=== PATIENT | male | born 1945 | race Caucasian/White ===

== ENCOUNTER 2020-03-22 16:02 | Outpatient (CLI) | payer MEDICARE, SELFPAY | END 2020-03-22 16:22 | PROVIDERS: PCP Nurse Practitioner Family; Visit Provider Student in an Organized Health Care Education/Training Program | DX: R06.02 Shortness of breath (principal); R06.83 Snoring; R51.9 Headache, unspecified | CPT/HCPCS: 94762 ==

== ENCOUNTER 2020-04-02 00:44 | Outpatient (CLI) | payer MEDICARE, SELFPAY ==
[2020-04-02 12:57] LABS: ALT 26 U/L (16-63); AST 11 U/L (15-37); Albumin 3.8 g/dL (3.4-5.0); Alkaline Phosphatase 106 U/L (46-116); Anion Gap 8.6 mmol/L (3-11); BUN 19 mg/dL (7-18); Bilirubin, Total 0.6 mg/dL (0.2-1.0); CO2 27.4 mmol/L (21.0-32.0); CREATININE 1.1 mg/dL (0.70-1.30); Calcium 9.2 mg/dL (8.5-10.1); Calculated LDL 126 mg/dL (<100); Chloride 103 mmol/L (98-107); Cholesterol 191 mg/dL (<200); Glucose 100 mg/dL (74-106); HDL Cholesterol 42 mg/dL (40-60); Potassium 4.5 mmol/L (3.5-5.1); Sodium 139 mmol/L (136-145); Total Protein 7.5 g/dL (6.4-8.2); Triglyceride 118 mg/dL (<150)
[2020-04-02 13:31] LABS: Hemoglobin A1C 5.8 % (<5.7)
[2020-04-02 18:07] LABS: PSA, Screening 0.6 ng/mL (0.0-6.5)
== END 2020-04-02 00:45 | disposition home or self-care (01) ==
LOC: LOS 00:44
PROVIDERS: PCP Nurse Practitioner Family; Visit Provider Nurse Practitioner Family
DX: E78.5 Hyperlipidemia, unspecified (principal); I10 Essential (primary) hypertension; R73.9 Hyperglycemia, unspecified; N40.0 Benign prostatic hyperplasia without lower urinary tract symptoms; Z12.5 Encounter for screening for malignant neoplasm of prostate
CPT/HCPCS: 36415; 80053; 80061; 84153; 83036

== ENCOUNTER 2020-04-19 02:47 | Outpatient (CLI) | payer MEDICARE, SELFPAY ==
--- NOTE | 2020-04-19 13:19 | DI.US_ITS ---
APPROVED REPORT EXAM: Comprehensive 2D, Doppler, and color-flow Echocardiogram Patient Location: Out-Patient Sales Process Manager: Alpa Baxter RDCS (AE) Indications: SOB, Evaluate EF Other Information Study Quality: Adequate Conclusion Left Ventricle : The left ventricle is normal size. The left ventricular systolic function is normal. The left ventricular ejection fraction is within the normal range. There is normal left ventricular wall thickness. There is normal LV segmental wall motion. The left ventricular diastolic function is normal. LVEF is 60%. Right Ventricle : The right ventricle is normal size. The right ventricular systolic function is norm al. The RVSP is 23.7 mmHg. Atria : The left atrium size is normal. The right atrium size is normal. Valves: There are no hemodynamically significant valvular lesions. Great Vessels : The aortic root is normal in size. The ascending aorta is normal in size. Aortic arch is normal in caliber. IVC is normal in size and collapses >50% with inspiration. Please see remainder of study for further details. Wall motion Left Ventricle The left ventricle is normal size. The left ventricular systolic function is normal. The left ventric ular ejection fraction is within the normal range. There is normal left ventricular wall thickness. T here is normal LV segmental wall motion. The left ventricular diastolic function is normal. There is no ventricular septal defect visualized. LVEF is 60%. Right Ventricle The right ventricle is normal size. The right ventricular systolic function is normal. The RVSP is 23 .7 mmHg. Atria The left atrium size is normal. The right atrium size is normal. The interatrial septum is intact wit h no evidence for an atrial septal defect. Aortic Valve The aortic valve is normal in structure. Aortic valve is trileaflet. There is no aortic valvular sten osis. No aortic regurgitation is present. Mitral Valve Mild mitral annular calcification. No evidence of mitral valve stenosis. Trace mitral regurgitation. Tricuspid Valve The tricuspid valve is normal in structure. There is no tricuspid valve stenosis. Trace tricuspid reg urgitation. Pulmonic Valve The pulmonary valve is normal in structure. There is no pulmonic valvular stenosis. Trace pulmonic re gurgitation. Great Vessels The aortic root is normal in size. The ascending aorta is normal in size. Aortic arch is normal in ca liber. IVC is normal in size and collapses >50% with inspiration. Pericardium There is no pericardial effusion. 2D Dimensions IVSD d PLAX 0.91 cm M: 0.6-1.2 LV Vol A2C d MOD 60.4 mL LVPW d PLAX 0.91 cm M: 0.6 - 1.2 LV Vol A4C d MOD 92.0 mL LVID d PLAX 4.21 cm M: 4.2 - 5.8 LA vol/ BSA A2C s A-L 15.3 mL/m2 LVDs 3.00 cm M: 2.5 - 4.0 LA vol/ BSA A4C s A-L 22.0 mL/m2 Ao Root d 3.55 cm M: 3.1 - 3.7 LA Vol/ BSA Biplane s A-L 19.6 mL/m2 RA Area A4C 11.88 cm2 LA Area A4C s MOD 15.42 cm2 RA Vol/ BSA A4C s A-L 14.1 mL/m2 LA Area A2C s MOD 12.08 cm2 Ao Asc Diam d 3.34 cm M: 2.6 - 3.4 LV EF A4C MOD 57.8 % LV EF Teichholz 54.6 % LV EF A2C MOD 60.4 % LVEF (Rolle's) 59.24 % M: 52 - 72 LV EF Biplane MOD 59.2 % LV Volume 58.88 mL M: 62 - 150 SV 45.62 mL LV Volume Index 31.15 mL/m2 M: 34 - 74 SV Index 24.14 mL/m2 LV Vol Biplane MOD 77.0 mL FS 28.00 % M-Mode TAPSE 2.85 cm (M/F) >1.7 LV Diastology MV E' medial 0.100 (>0.07 m/s) E/A Ratio 0.6 LV E/e MED 4.40 (<14) MV E Vmax 0.44 (0.4-1.3 m/s) MV E' lateral 0.099 (>0.1 m/s) MV A Vmax 0.80 (0.4-1.3 m/s) LV E/e LAT 4.45 (<14) MV E/A Ratio 0.55 MV E/E' medial 4.44 MV E/E' lateral 4.49 Aortic Valve LVOT Area 2.97 cm2 AoV Area Vmax 2.37 cm2 LVOT Vmax 0.80 m/s AoV Area/ BSA (Vmax) 1.26 cm2/m2 LVOT Mean Roger. 0.55 m/s KARYNA Mean Roger. 2.45 cm2 LVOT Peak Grad 2.6 mmHg KARYNA Mean Roger. Index 1.30 cm2/m2 LVOT Mean Grad 1.4 mmHg LVOT VTI 0.182 m LVOT Diam s 1.90 cm AoV Vmax 1.00 m/s Velocity Ratio 0.80 AoV Mean Roger. 0.67 m/s AoV Peak Grad 4.0 mmHg LVOT SV 53.85 mL AoV Mean Grad 2.0 mmHg AoV VTI 0.175 m AoV Area VTI 3.07 cm2 AoV Area/ BSA (VTI) 1.63 cm/m2 Mitral Valve MV DT 247 (160-240 msec) MV PHT 72 msec MV Area PHT 3.07 cm2 Pulmonary Valve PV Vmax 1.03 (0.5-1.5 m/s) RVOT Peak Gr. 1.56 mmHg PV Peak Grad 4.2 mmHg RVOT Mean Gr. 0.75 mmHg PV Mean Grad 2.1 mmHg RVOT VTI 0.117 m PV VTI 0.185 m RVOT Vmax 0.62 m/s Tricuspid Valve TR Peak Grad 20.6 mmHg TR Vmax 2.27 m/s RA Pressure 3.00 mmHg RVSP (TR) 23.7 mmHg
== END 2020-04-19 03:07 ==
PROVIDERS: PCP Nurse Practitioner Family; Visit Provider Student in an Organized Health Care Education/Training Program
DX: R06.02 Shortness of breath (principal)
CPT/HCPCS: 93306

== ENCOUNTER 2020-06-21 06:25 | Day surgery (SDC) | payer MEDICARE, SELFPAY ==
[2020-06-21 06:50] VITALS: BP 139/79; PULSE 83; RESP 16; TEMP 36.5; O2SAT 95
--- NOTE | 2020-06-21 06:54 | W.ANESPRE ---
General Info Date of Service Date Performed: 06/21/20 Height: 5 ft 6 in Weight: 78.2 kg Body Mass Index (BMI): 27.8 Surgical Procedure: Operation Date: 06/21/20 07:40 Proposed Procedures Side Surgeon p Cataract Extraction with IOL Implant Right William Kaplan MD Meds Allergies and Home Medications Allergies Allergy/AdvReac Type Severity Reaction Status Date / Time pollen extracts AdvReac Mild Verified 06/21/20 06:47 Home Medication Medication Instructions Recorded aspirin 325 mg tablet 325 mg PO Q6H 03/18/20 dextromethorphan HBr 15 mg capsule 15 mg PO Q8H PRN 03/18/20 latanoprost 0.005 % eye drops 1 drp OPHTHALMIC (EYE) HS 03/18/20 naproxen sodium 220 mg capsule 220 mg PO BID PRN 03/18/20 triamcinolone acetonide 55 mcg 1 spray INTRANASAL DAILY 03/18/20 nasal spray aerosol amlodipine 5 mg tablet 5 mg PO DAILY #90 tab 03/31/20 tamsulosin 0.4 mg capsule 0.4 mg PO DAILY #90 cap 04/14/20 Current Visit Medications: Current Medications Generic Name Dose Route Start Last Admin Trade Name Freq PRN Reason Stop Dose Admin Acetaminophen 1,000 mg 06/21/20 06:00 Acetaminophen 500 Mg Tab PO Q4H PRN PRN Miscellaneous Medication 0 ml 06/21/20 06:00 Prednisolone 1%, Moxifloxacin 0.5%, Nepafenac 0.1% 5ml Btl OD DIRECTED [facility] Miscellaneous Medication 0 ml 06/21/20 06:00 06/21/20 06:45 Tropicam./Phenyleph. (1/2.5%) 10 Ml Btl OD 1 drp DIRECTED BILLY Administration Tetracaine HCl 0 ml 06/21/20 06:00 Tetracaine 0.5% 4 Ml Btl OD DIRECTED BILLY PFSH Active Problems Active Problems: Problem Status Onset Code Screening cholesterol level Z13.220 Hypertension I10 BPH (benign prostatic hyperplasia) N40.0 Elevated hemoglobin A1c R73.09 Nuclear sclerotic cataract of right eye H25.11 History of paranasal sinus congestion Z87.09 Medical History Medical History History of paranasal sinus congestion Uses Nasacort and Netti pot wash Surgical History Surgical History Hx of vasectomy Tobacco Smoking/Tobacco Use Status: Former Tobacco Use Tobacco: How many years used: 5 Passive smoking exposure: Yes Second hand exposure: Yes Alcohol Alcohol Intake: current Alcohol intake frequency: a few times a week Alcohol type: beer Substance Use Substance use: Never Substance use type: does not use Vital Signs and Lab Results Vital Signs Most Recent Vital Signs in EMR: Most Recent Vital Signs Temp Pulse Resp BP Pulse Ox 36.5 C 83 16 139/79 95 06/21/20 06:50 06/21/20 06:50 06/21/20 06:50 06/21/20 06:50 06/21/20 06:50 Lab Results Blood Type / Crossmatch: No Data to Display Complete Blood Count: No Data to Display Complete Metabolic Panel: Sodium Level 139 mmol/L (136-145) 04/02/20 08:04 04/02/20 Potassium Level 4.5 mmol/L (3.5-5.1) 04/02/20 08:04 04/02/20 Chloride Level 103 mmol/L (98-107) 04/02/20 08:04 04/02/20 Carbon Dioxide Level 27.4 mmol/L (21.0-32.0) 04/02/20 08:04 04/02/20 Blood Urea Nitrogen 19 mg/dL (7-18) H 04/02/20 08:04 04/02/20 Creatinine 1.1 mg/dL (0.70-1.30) 04/02/20 08:04 04/02/20 Calcium Level 9.2 mg/dL (8.5-10.1) 04/02/20 08:04 04/02/20 Albumin 3.8 g/dL (3.4-5.0) 04/02/20 08:04 04/02/20 Glucose Level 100 mg/dL (74-106) 04/02/20 08:04 04/02/20 Hemoglobin A1c 5.8 % (<5.7) H 04/02/20 08:04 04/02/20 Liver Function Panel: Alanine Aminotransferase (ALT/SGPT) 26 U/L (16-63) 04/02/20 08:04 04/02/20 Aspartate Amino Transf (AST/SGOT) 11 U/L (15-37) L 04/02/20 08:04 04/02/20 Coagulation Panel: No Data to Display Cardiac Panel: No Data to Display Arterial Blood Gas: No Data to Display Venous Blood Gas: No Data to Display Pancreas Panel: No Data to Display Thyroid Panel: No Data to Display Infectious Disease: No Data to Display Blood Cultures: No Data to Display Toxicology Panel: No Data to Display Imaging and Studies Imaging and Studies Echocardiogram Summary:: 04/19/20 Indications: SOB, Evaluate EF Other Information Study Quality: Adequate Conclusion Left Ventricle : The left ventricle is normal size. The left ventricular systolic function is normal. The left ventricular ejection fraction is within the normal range. There is normal left ventricular wall thickness. There is normal LV segmental wall motion. The left ventricular diastolic function is normal. LVEF is 60%. Right Ventricle : The right ventricle is normal size. The right ventricular systolic function is normal. The RVSP is 23.7 mmHg. Atria : The left atrium size is normal. The right atrium size is normal. Valves: There are no hemodynamically significant valvular lesions. Great Vessels : The aortic root is normal in size. The ascending aorta is normal in size. Aortic arch is normal in caliber. IVC is normal in size and collapses >50% with inspiration. Please see remainder of study for further details. Anesthesia Assessment and Plan Anesthesia History Personal History: No History of Anesthesia Complications Family History: No Family History of Anesthesia Complications Exercise Tolerance Exercise Tolerance: Metabolic Equivalents>4 Pertinent Negatives Pertinent Negatives: No Symptoms of GERD Cardiac & Pulmonary Exam Cardiac Exam: Normal S1/S2 Heart Sounds Pulmonary Exam: Clear Bilateral Breath Sounds Airway Exam Known Difficult Airway: No Mallampati Class: 2 Mouth Opening: Normal (> 3cm) Thyromental Distance: Greater than 3 cm Neck Range of Motion: Full ROM Neck Circumference: Normal Teeth Condition: Normal Dentition ASA Classification ASA Score: ASA 2 ASA Emergency: No NPO Status NPO Status: NPO Clears >2 hours, Solids >8 hours Anesthesia Plan Anesthesia Technique: MAC Anesthesia Airway Planned: Natural Airway Monitors Used: Standard Monitors
[2020-06-21 07:11] VITALS: BMI 27.8
[2020-06-21] MEDS: Balanced Salt Soln.-PLUS 500 ML BAG (07:32)
[2020-06-21] MEDS: Duovisc Viscoelastic System EACH 1 EACH (07:33)
[2020-06-21] MEDS: Lidocaine 2% Jelly 6 ML SYR (07:34)
[2020-06-21] MEDS: Lidocaine 1% Pres-Free 5 ML VIAL (07:34)
[2020-06-21] MEDS: Povidone-Iodine Ophth 30 ML BTL (07:36)
[2020-06-21] MEDS: Tetracaine 0.5% 4 ML BTL OD (07:37)
--- NOTE | 2020-06-21 07:44 | W.ANESPOSTOP ---
Postoperative Evaluation Date, Time and Location Date Performed: 06/21/20 Time Performed: 08:12 Patient Location: Day Surgery Unit Vital Signs Most Recent Imported Vital Signs: Most Recent Vital Signs Temp Pulse Resp BP Pulse Ox 36.5 C 83 16 139/79 95 06/21/20 06:50 06/21/20 06:50 06/21/20 06:50 06/21/20 06:50 06/21/20 06:50 Most Recent Manually Entered Vital Signs: Adult Blood Pressure: 141/80 Heart Rate: 78 Respirations: 18 Oxygen Saturation (%): 98 Temperature (C): 36.6 C Pain Score (0-10 Scale): 0 Pain Score Most Recent Pain Score: Most Recent Pain Score Pain Level 0 06/21/20 06:50 Assessment Mental Status: Awake (Alert & Oriented to Patient Baseline) Airway and Respiratory Function: Patent airway with normal (patient baseline) respiratory exam Cardiovascular Function: Hemodynamically Stable Hydration Status: Adequately Hydrated Nausea & Vomiting: No Nausea or Vomiting Pain: Pt. Denies Any Pain Peripheral Nerve Block: Patient did not receive a nerve block
--- NOTE | 2020-06-21 08:07 | W.PM.DSUDISC ---
Discharge Plan Disposition Patient Disposition: HOME Condition: Good Discharge Details Attending Provider: William Kaplan Primary Care Provider: Micah Costa Home Meds and New Rx's Prescriptions: No Action triamcinolone acetonide [Nasacort] 55 mcg aerosol,spray 1 spray intranasal DAILY RF: 0 Tussin Cough (DM only) 15 mg capsule 15 mg PO Q8H PRNRF: 0 aspirin 325 mg tablet 325 mg PO Q6H RF: 0 naproxen sodium [Aleve] 220 mg capsule 220 mg PO BID PRNRF: 0 latanoprost 0.005 % drops 1 drp ophthalmic (eye) HS RF: 0 amlodipine 5 mg tablet 5 mg PO DAILY Qty: 90 RF: 4 tamsulosin [Flomax] 0.4 mg capsule 0.4 mg PO DAILY Qty: 90 RF: 4 Discharge Instructions Stand Alone Forms: Post-op Block Cataract, Post-op Topical Cataract, Press Ganey (DSU) Discharge Orders Discharge Orders: Discharge Order (Routine); Ordered 06/21/20 Ordered By: William Kaplan DS: Diagnosis Discharge Diagnosis (1) Nuclear sclerotic cataract of right eye: Status: Resolved
--- NOTE | 2020-06-21 08:07 | W.PM.OP ---
Date of service: 06/21/20 Time of Service: 08:08 Operative Note Operative Note DATE OF PROCEDURE: 06/21/20 PRE-OP DIAGNOSIS: Nuclear cataract, right eye Poorly dilating pupil, right eye POST-OP DIAGNOSIS: same PROCEDURE: 1. Cataract extraction by phacoemulsification with intraocular lens implantation, right eye, with pupillary expansion device SURGEON: William Kaplan ANESTHESIA TYPE: Local By Surgeon and MAC Refer to Anesthesia Record PATHOLOGY: none sent COMPLICATIONS: None Patient was transported to: same day Patient's condition: stable Implants: Marcelo and Marcelo / [employer] Tecnis [id number] Indications: Progressive decreased vision due to cataract, right eye, with poorly dilating pupil Procedure Description: CATARACT SURGERY OPERATIVE REPORT PREOPERATIVE DIAGNOSIS: 1. Nuclear cataract, right eye 2. Poorly dilating pupil, right eye 3. Shallow anterior chamber, status post peripheral iridotomy, extensive posterior synechia POSTOPERATIVE DIAGNOSIS: Same OPERATION: 1. Cataract extraction using phacoemulsification with posterior chamber intraocular lens implant, right eye. 2. Pupillary dilation and iris stabilization using Malyugin Ring IOL: IOL Quantitative Equity Head/Model: Marcelo & Marcelo / NORAH Tecnis [id number] IOL Power: + 25.0 diopters IOL Serial Number: [id number] Optic Diameter: 6.0mm Haptic/Overall Diameter: 13.0mm PHACO INFO: Allan Cylexurion Vision System with OZil and Active Fluidics Cumulative Dispersed Energy (CDE): 13.04 seconds SURGEON: William Kaplan MD, PEREZ ANESTHESIA: Monitored Anesthesia Care (MAC), with local sub-tenon's anesthetic infiltration COMPLICATIONS: None SPECIMENS: None INDICATIONS FOR PROCEDURE: The patient is a 75-year-old gentleman with history of narrow angles was undergone laser iridotomy. He has developed extensive posterior synechia with a very poorly dilating pupil. He now has a moderate nuclear cataract. The option of cataract surgery was offered to the patient and he wished to proceed. PROCEDURE: The correct surgical eye was identified and marked as the right eye and the pupil was dilated in the preoperative area using mydriatics and cycloplegics. The dilated pupil size was 3.0 mm. He elected to proceed without oral sedation.. The patient was brought to the operating room where cardiopulmonary monitoring was instituted and surgical time-out was performed, confirming the correct operative eye and IOL power. Topical anesthesia was administered and ophthalmic povidone-iodine 5% was instilled into the conjunctival fornices. Lidocaine gel was applied to the cornea and the dorie-ocular area was prepped with Betadine 10% solution and draped in the usual sterile fashion for intraocular surgery, including an aperture drape. A Tegaderm transparent film dressing was cut in half and used to cover the lashes and lid margins. Care was taken to sequester the lashes and lid margins under the Tegaderm dressing. A lid speculum was placed between the lids of the operative eye and the Karen-Maxime operating microscope was maneuvered into position. Jeff scissors were then used to make a conjunctival buttonhole approximately 6mm posterior to the limbus in the inferonasal quadrant. Blunt dissection was carried out to expose bare sclera, and a blunt-tipped sub-tenon?s anesthesia cannula was introduced and passed posteriorly along the globe where non-preserved plain lidocaine was injected into posterior sub-Tenon?s space. A sideport knife was used to make a paracentesis port inferiortemporally. Intraocular phenylephrine/lidocaine was injected in the anterior chamber. The anterior chamber was filled with viscoelastic. A 2.4mm keratome knife was used to create a half-thickness groove at the limbus and then to construct a three-plane near-clear corneal tunnel extending 2.0mm into clear cornea superiortemporally. A Kuglen hook was then used to release the extensive posterior synechia and to gently stretch the pupil. A 7.0 mm Malyugin Ring was then inserted into the pupillary space and engaged with the Kuglen hook. A flap was raised on the anterior capsule and capsulorhexis forceps were used to complete a continuous curvilinear capsulorhexis of 5.0 mm. The anterior capsule was noted to be very thin with moderate zonular laxity. Balanced salt solution was then used to perform cortical cleaving hydrodissection and nuclear hydrodelineation until the lens could be freely rotated within the capsular bag. The lens nucleus was then disassembled and removed within the capsular bag and iris plane using phacoemulsification. Additional dispersive viscoelastic was intermittently injected into the anterior chamber to protect the corneal endothelium due to the shallow chamber. Residual cortical material was removed using the 45-degree angled silicone I/A tip with 0.3mm port. The posterior capsule was carefully polished to remove as much residual lens epithelial cells as safely possible. The capsular bag was then inflated and the anterior chamber deepened with viscoelastic. The lens implant described above was inserted into the capsular bag using the NORAH [place] Injector. A Kuglen hook was used to dial the IOL into position. The Malyugin Ring was removed in the reverse order of its insertion. Residual viscoelastic was then removed first from posterior to the IOL, then from the anterior chamber using the I/A handpiece. The lens implant was noted to center nicely within the capsular bag. The incisions were stromally hydrated, and the anterior chamber was reformed using BSS. Then 0.5cc of moxifloxacin 1.0mg/ml were injected into the capsular bag and anterior chamber. The incisions were checked with a Weck spear and found to be secure. Several drops of ophthalmic povidone-iodine 5% were then applied to the eye followed by two drops of Imprimis combination prednisolone/moxifloxacin/nepafenac solution. The drapes were removed and a clear plastic protective eye shield was placed over the eye. The patient was then returned to Same Day Surgery in stable condition.
[2020-06-21 08:13] VITALS: BP 141/80; PULSE 78; RESP 18; TEMPC 36.6; O2SAT 98
== END 2020-06-21 08:25 | disposition home or self-care (01) ==
PROVIDERS: PCP Nurse Practitioner Family; Visit Provider Ophthalmology
PROC: (CPT 66982; principal; 2020-06-21 07:30)
DX: H25.11 Age-related nuclear cataract, right eye (principal); H57.09 Other anomalies of pupillary function; H21.541 Posterior synechiae (iris), right eye
CPT/HCPCS: 66982; V2632

== ENCOUNTER 2021-08-18 02:35 | Outpatient (CLI) | payer OTHER, SELFPAY ==
[2021-08-18 14:27] LABS: Hemoglobin A1C 5.7 % (<5.7)
[2021-08-18 22:23] LABS: PSA, Screening 0.7 ng/mL (<=6.5)
== END 2021-08-18 02:36 | disposition home or self-care (01) ==
LOC: LOS 02:35
PROVIDERS: PCP Nurse Practitioner Family; Visit Provider Nurse Practitioner Family
DX: R73.09 Other abnormal glucose (principal); R39.11 Hesitancy of micturition; N40.1 Benign prostatic hyperplasia with lower urinary tract symptoms; Z12.5 Encounter for screening for malignant neoplasm of prostate
CPT/HCPCS: 36415; 84153; 83036

== ENCOUNTER 2023-05-23 05:10 | Outpatient (CLI) | payer OTHER, SELFPAY ==
[2023-05-23 12:58] LABS: Calculated LDL 127 mg/dL (<100); Cholesterol 190 mg/dL (<200); HDL Cholesterol 45 mg/dL (40-60); Triglyceride 90 mg/dL (<150)
== END 2023-05-23 05:11 | disposition home or self-care (01) ==
LOC: LOS 05:10
PROVIDERS: PCP Nurse Practitioner Family; Visit Provider Nurse Practitioner Family
DX: Z13.6 Encounter for screening for cardiovascular disorders (principal)
CPT/HCPCS: 36415; 80061

== ENCOUNTER 2024-02-01 06:43 | Day surgery (SDC) | payer MEDICARE, SELFPAY ==
[2024-02-01 06:45] VITALS: BP 138/78; PULSE 72; RESP 18; TEMP 36; O2SAT 98
[2024-02-01] MEDS: Tropicam./Phenyleph. (1/2.5%) 5 ML BTL OS ×3 (06:52→07:04)
--- NOTE | 2024-02-01 07:45 | W.ANESPRE ---
General Info Date of Service Date Performed: 02/01/24 Height: 5 ft 6 in Weight: 77.8 kg Body Mass Index (BMI): 27.6 Surgical Procedure: Operation Date: 02/01/24 08:40 Proposed Procedure Side Surgeon p Cataract Extraction with IOL Implant Left William Kaplan MD Meds Allergies and Home Medications Allergies Allergy/AdvReac Type Severity Reaction Status Date / Time pollen extracts AdvReac Mild sinus Verified 02/01/24 06:57 issues bee sting Allergy Severe Anaphylaxis Uncoded 02/01/24 06:57 Home Medication ?Medication ?Instructions ?Recorded aspirin 325 mg tablet 325 mg PO Q6H PRN 03/18/20 latanoprost 0.005 % eye drops 1 drp ophthalmic (eye) HS 03/18/20 naproxen sodium 220 mg capsule 220 mg PO BID PRN 03/18/20 (Aleve) triamcinolone acetonide 55 mcg 1 spray intranasal DAILY 03/18/20 nasal spray aerosol (Nasacort) epinephrine 0.3 mg/0.3 mL 0.3 mg (0.3 mL) IM ONCE #2 ea 10/09/22 injection, auto-injector famotidine 20 mg tablet (Pepcid) 20 mg PO DAILY #7 tabs 10/09/22 amlodipine 5 mg tablet 5 mg PO DAILY #90 tabs 12/17/23 tamsulosin 0.4 mg capsule (Flomax) 0.4 mg PO DAILY #90 caps 12/17/23 Current Visit Medications: Current Medications Generic Name Dose Route Start Last Admin Trade Name Freq PRN Reason Stop Dose Admin Acetaminophen 1,000 mg 02/01/24 06:00 Acetaminophen 500 Mg Tab PO 03/02/24 05:59 Q4H PRN PRN Balanced Salt Solution 500 ml 02/01/24 06:00 Balanced Salt Soln.-Plus 500 Ml Bag OP 03/02/24 05:59 DIRECTED BILLY Miscellaneous Medication 0 ml 02/01/24 06:00 Prednisolone 1%, Moxifloxacin 0.5%, Bromfenac 0.09% 5.6ml Btl OS 03/02/24 05:59 DIRECTED BILLY Miscellaneous Medication 0 ml 02/01/24 06:00 02/01/24 07:04 Tropicam./Phenyleph. (1/2.5%) 5 Ml Btl OS 03/02/24 05:59 1 drp DIRECTED BILLY Administration Tetracaine HCl 0 ml 02/01/24 06:00 Tetracaine 0.5% 4 Ml Btl OS 03/02/24 05:59 DIRECTED BILLY PFSH Active Problems Active Problems: Problem Status Onset Code Nuclear age-related cataract, left eye Acute H25.12 Elevated hemoglobin A1c Acute R73.09 BPH (benign prostatic hyperplasia) Chronic N40.0 Hypertension Chronic I10 History of paranasal sinus congestion Chronic Z87.09 Medical History Medical History Heart burn Surgical History Surgical History Hx of vasectomy Nuclear sclerotic cataract of right eye Tobacco Smoking/Tobacco Use Status: Former Tobacco Use Passive smoking exposure: Yes Second hand exposure: Yes Alcohol Alcohol Intake: current Alcohol intake frequency: a few times a week Alcohol type: beer Substance Use Substance use: Never Substance use type: does not use Vital Signs and Lab Results Vital Signs Most Recent Vital Signs in EMR: Most Recent Vital Signs Temp Pulse Resp BP Pulse Ox 36 C L 72 18 138/78 98 02/01/24 06:45 02/01/24 06:45 02/01/24 06:45 02/01/24 06:45 02/01/24 06:45 Lab Results Blood Type / Crossmatch: No Data to Display Complete Blood Count: No Data to Display Complete Metabolic Panel: No Data to Display Liver Function Panel: No Data to Display Coagulation Panel: No Data to Display Cardiac Panel: No Data to Display Arterial Blood Gas: No Data to Display Venous Blood Gas: No Data to Display Pancreas Panel: No Data to Display Thyroid Panel: No Data to Display Infectious Disease: No Data to Display Blood Cultures: No Data to Display Toxicology Panel: No Data to Display Imaging and Studies Imaging and Studies Study information below may be from another EMR and interpreted by another provider. Please see original notes in EMR for more complete details. Echocardiogram Summary: 04/19/20 Indications: SOB, Evaluate EF Other Information Study Quality: Adequate Conclusion Left Ventricle : The left ventricle is normal size. The left ventricular systolic function is normal. The left ventricular ejection fraction is within the normal range. There is normal left ventricular wall thickness. There is normal LV segmental wall motion. The left ventricular diastolic function is normal. LVEF is 60%. Right Ventricle : The right ventricle is normal size. The right ventricular systolic function is normal. The RVSP is 23.7 mmHg. Atria : The left atrium size is normal. The right atrium size is normal. Valves: There are no hemodynamically significant valvular lesions. Great Vessels : The aortic root is normal in size. The ascending aorta is normal in size. Aortic arch is normal in caliber. IVC is normal in size and collapses >50% with inspiration. Anesthesia Assessment and Plan Anesthesia History Personal History: No History of Anesthesia Complications Family History: No Family History of Anesthesia Complications Exercise Tolerance Exercise Tolerance: Metabolic Equivalents>4 Pertinent Negatives Pertinent Negatives: No Symptoms of GERD, No Major Cardiovascular Symptoms or Complaints and No Major Pulmonary Symptoms or Complaints Cardiac & Pulmonary Exam Cardiac Exam: Normal S1/S2 Heart Sounds Pulmonary Exam: Clear Bilateral Breath Sounds Implantable Cardiac Device Does patient have a Pacemaker or an ICD?: No Airway Exam Known Difficult Airway: No Mallampati Class: 2 Mouth Opening: Normal (> 3cm) Thyromental Distance: Greater than 3 cm Neck Range of Motion: Full ROM Neck Circumference: Normal Teeth Condition: Normal Dentition ASA Classification ASA Score: ASA 2 Emergency Case?: No NPO Status NPO Status: NPO Clears >2 hours, Solids >8 hours Anesthesia Plan Resuscitation Status: Full Code Anesthesia Technique: MAC Anesthesia Airway Planned: Natural Airway Monitors Used: Standard Monitors
[2024-02-01 08:18] VITALS: BMI 27.6
[2024-02-01] MEDS: Duovisc Viscoelastic System EACH 1 EACH (08:25)
[2024-02-01] MEDS: Lidocaine 1% Pres-Free 5 ML VIAL (08:25)
[2024-02-01] MEDS: Phenylephrine/Lidocaine (15/10) MG/ML 1 ML VIAL (08:27)
[2024-02-01] MEDS: Balanced Salt Soln.-PLUS 500 ML BAG OP (08:28)
[2024-02-01] MEDS: Povidone-Iodine Ophth 30 ML BTL (08:28)
[2024-02-01] MEDS: Prednisolone 1%, Moxifloxacin 0.5%, Bromfenac 0.09% 5.6ML BTL OS (08:29)
[2024-02-01] MEDS: Tetracaine 0.5% 4 ML BTL OS (08:30)
--- NOTE | 2024-02-01 08:44 | ROE_ITS ---
Operative Note Operative Note PRE-OP DIAGNOSIS: Nuclear cataract, left eye poorly dilating pupil, left eye POST-OP DIAGNOSIS: same PROCEDURE: Cataract extraction by phacoemulsification with intraocular lens implantation, left eye, with pupillary expansion device SURGEON: William Kaplan ANESTHESIA TYPE: Local By Surgeon and MAC Refer to Anesthesia Record ESTIMATED BLOOD LOSS: 0 PATHOLOGY: none sent COMPLICATIONS: None Patient was transported to: same day Patient's condition: stable Implants: Marcelo [employer] Marcel[employer] / [employer] Tecnis Eyhance DIB00 Indications: Progressive decreased vision, left eye Poorly dilating pupil, left eye. Procedure Description: CATARACT SURGERY OPERATIVE REPORT PREOPERATIVE DIAGNOSIS: 1. Nuclear cataract, left eye 2. Poorly dilating pupil, left eye POSTOPERATIVE DIAGNOSIS: Same OPERATION: 1. Cataract extraction using phacoemulsification with posterior chamber intraocular lens implant, left eye. 2. Pupillary dilation and iris stabilization using Malyugin Ring IOL; IOL Supervisor Metal Furniture Assembly/Model: Marcelo & Marcelo / NORAH Tecnis Eyhance DIB00 IOL Power: + 24.0 diopters IOL Serial Number: [id number] Optic Diameter: 6.0 mm Haptic/Overall Diameter: 13.00 mm PHACO INFO: [employer]Popularourion Vision System with OZil and Active [employer]uidics Cumulative Dispersed Energy (CDE): 7.20 seconds SURGEON: William Kaplan MD, PEREZ ANESTHESIA: Monitored Anesthesia Care (MAC), with local sub-tenon's anesthetic infiltration COMPLICATIONS: None SPECIMENS: None INDICATIONS FOR PROCEDURE: The patient is a 78-year-old male with history of diminished visual acuity in his left eye secondary to the development of nuclear cataract. He has previously undergone cataract surgery in the right eye in 2020, with subsequent YAG laser capsulotomy. He has had previous laser peripheral iridotomy's for narrow anterior chamber angles. He now presents for cataract surgery in the left eye. See office notes for detailed information. PROCEDURE: The correct surgical eye was identified and marked as the left eye and the pupil was dilated in the preoperative area using mydriatics, cycloplegics, and NSAIDS (except in aspirin allergic patients). The dilated pupil size was 3.5 mm. The patient elected to proceed without oral sedation. The patient was brought to the operating room where cardiopulmonary monitoring was instituted and surgical time-out was performed, confirming the correct operative eye and IOL power. Topical anesthesia was administered and ophthalmic povidone-iodine 5% was instilled into the conjunctival fornices. The dorie-ocular area was prepped with Betadine 10% solution and draped in the usual sterile fashion for intraocular surgery, including an aperture drape. A Tegaderm transparent film dressing was cut in half and used to cover the lashes and lid margins. Care was taken to sequester the lashes and lid margins under the Tegaderm dressing. A lid speculum was placed between the lids of the operative eye and the Karen-Maxime operating microscope was maneuvered into position. Jeff scissors were then used to make a conjunctival buttonhole approximately 6mm posterior to the limbus in the inferonasal quadrant. Blunt dissection was carried out to expose bare sclera, and a blunt-tipped sub-tenon?s anesthesia c annula was introduced and passed posteriorly along the globe where non-preserved plain lidocaine was injected into posterior sub-Tenon?s space. A sideport knife was used to make a paracentesis port superiorly/superiortemporally. Intraocular phenylephrine/lidocaine was injected into the anterior chamber. The anterior chamber was then filled with viscoelastic. A keratome knife was used to create a half-thickness groove at the limbus and then to construct a three-plane near- clear corneal tunnel extending 2.0mm into clear cornea at the temporal position. A 6.25 mm Malyugin Ring was then inserted into the pupillary space and engaged with the Kuglen hook. A flap was raised on the anterior capsule and capsulorhexis forceps were used to complete a continuous curvilinear capsulorhexis of 5.0 mm. Balanced salt solution was then used to perform cortical cleaving hydrodissection and nuclear hydrodelineation until the lens could be freely rotated within the capsular bag. The lens nucleus was then disassembled and removed within the capsular bag and iris plane using phacoemulsification. Residual cortical material was removed using the 45-degree angled silicone I/A tip with 0.3mm port. The posterior capsule was carefully polished to remove as much residual lens epithelial cells as safely possible. The capsular bag was then inflated and the anterior chamber deepened with viscoelastic. The lens implant described above was inserted into the capsular bag using the Marcelo and Marcelo Simplicity Injector. A Kuglen hook was used to dial the IOL into position. The Malyugin Ring was removed in the reverse order of its insertion. Residual viscoelastic was then removed first from posterior to the IOL, then from the anterior chamber using the I/A handpiece. The lens implant was noted to center nicely within the capsular bag. The incisions were stromally hydrated, and the anterior chamber was reformed using BSS. Then 0.5cc of moxifloxacin 1.0mg/ml were injected into the capsular bag and anterior chamber. The incisions were checked with a Weck spear and found to be secure. Several drops of ophthalmic povidone-iodine 5% were then applied to the eye followed by two drops of Imprimis combination prednisolone/moxifloxacin/nepafenac solution. The drapes were removed and a clear plastic protective eye shield was placed over the eye. The patient was then returned to Same Day Surgery in stable condition. Date of Procedure: 02/01/24
--- NOTE | 2024-02-01 08:44 | W.PM.DSUDISC ---
Date of service: 02/01/24 Discharge Plan Disposition Patient Disposition: Home Discharge Details Attending Provider: William Kaplan Primary Care Provider: Micah Costa Home Meds and New Rx's Prescriptions: No Action triamcinolone acetonide [Nasacort] 55 mcg aerosol,spray 1 spray intranasal DAILY Rx Instructions: administer into each nostril aspirin 325 mg tablet 325 mg PO Q6H PRN naproxen sodium [Aleve] 220 mg capsule 220 mg PO BID PRN latanoprost 0.005 % drops 1 drp ophthalmic (eye) HS epinephrine 0.3 mg/0.3 mL auto-injector 0.3 mg IM ONCE Qty: 2 0RF Rx Instructions: as a single dose; may repeat once famotidine [Pepcid] 20 mg tablet 20 mg PO DAILY Qty: 7 0RF amlodipine 5 mg tablet 5 mg PO DAILY Qty: 90 4RF tamsulosin [Flomax] 0.4 mg capsule 0.4 mg PO DAILY Qty: 90 4RF Discharge Instructions Stand Alone Forms: [facility] Post-Op Cataract, Jhoana Mcgraw (DSU) Discharge Orders Discharge Orders: Discharge Order (Routine); Ordered 02/01/24 Ordered By: William Kaplan DS: Diagnosis Discharge Diagnosis (1) Nuclear age-related cataract, left eye: Status: Resolved
[2024-02-01 08:45] VITALS: BP 151/75; PULSE 79; RESP 18; TEMP 36.6; O2SAT 98
--- NOTE | 2024-02-01 09:21 | W.ANESPOSTOP ---
Postoperative Evaluation Date, Time and Location Date Performed: 02/01/24 Time Performed: 08:45 Patient Location: Day Surgery Unit Vital Signs Most Recent Imported Vital Signs: Most Recent Vital Signs Temp Pulse Resp BP Pulse Ox 36.6 C 79 18 151/75 H 98 02/01/24 08:45 02/01/24 08:45 02/01/24 08:45 02/01/24 08:45 02/01/24 08:45 Pain Score Most Recent Pain Score: Most Recent Pain Score Pain Level 0 02/01/24 08:45 Assessment Mental Status: Awake (Alert & Oriented to Patient Baseline) Airway and Respiratory Function: Patent airway with normal (patient baseline) respiratory exam Cardiovascular Function: Hemodynamically Stable Hydration Status: Adequately Hydrated Nausea & Vomiting: No Nausea or Vomiting Pain: Pt. Denies Any Pain Peripheral Nerve Block: Patient did not receive a nerve block
== END 2024-02-01 08:57 | disposition home or self-care (01) ==
LOC: SUR 06:43
PROVIDERS: PCP Nurse Practitioner Family; Visit Provider Ophthalmology
PROC: (CPT 66982; principal; 2024-02-01 08:30)
DX: H25.12 Age-related nuclear cataract, left eye (principal); Z98.41 Cataract extraction status, right eye
CPT/HCPCS: 66982; 00123; V2632; J2003

== ENCOUNTER 2024-05-29 02:22 | Outpatient (CLI) | payer MEDICARE, SELFPAY ==
[2024-05-29 13:11] LABS: Anion Gap 9.8 mmol/L (3-11); BUN 19 mg/dL (7-18); CO2 27.2 mmol/L (21.0-32.0); CREATININE 1.2 mg/dL (0.70-1.30); Calcium 9.2 mg/dL (8.5-10.1); Calculated LDL 130 mg/dL (<100); Chloride 107 mmol/L (98-107); Cholesterol 196 mg/dL (<200); Estimated GFR 62.29 (mL/min/1.73m2); Glucose 103 mg/dL (74-106); HDL Cholesterol 49 mg/dL (>or=40); Sodium 144 mmol/L (136-145); Triglyceride 87 mg/dL (<150)
[2024-05-29 18:36] LABS: PSA, Screening 0.8 ng/mL (<=6.5)
== END 2024-05-29 02:23 | disposition home or self-care (01) ==
LOC: LOS 02:23
PROVIDERS: PCP Nurse Practitioner Family; Visit Provider Nurse Practitioner Family
DX: Z13.1 Encounter for screening for diabetes mellitus (principal); Z12.5 Encounter for screening for malignant neoplasm of prostate; Z13.6 Encounter for screening for cardiovascular disorders
CPT/HCPCS: 36415; 80048; 80061; 84153

== ENCOUNTER 2024-11-05 13:30 | Outpatient (CLI) | payer MEDICARE, SELFPAY ==
--- NOTE | 2024-11-05 16:30 | DI.RAD_ITS ---
Exam(s) XR HAND LT COMPLETE EXAM: XR HAND LT COMPLETE CLINICAL HISTORY: evaluate fx. TECHNIQUE: 2D digital imaging was performed. COMPARISON: No exams were available for comparison FINDINGS: 3 views There is a comminuted and moderately displaced fracture of the proximal phalanx of the thumb. Fracture line extends proximally to involve the articular surface of the metacarpophalangeal joint of the thumb. There is no extension to the interphalangeal joint. There is no radiopaque foreign body. No osseous lesions. Thumb metacarpal and distal phalanx appear intact. No other fractures evident. IMPRESSION: Comminuted and moderately displaced fracture of the proximal phalanx of the thumb. DATA REPOSITORY: RADIATION DOSE DELIVERED:
--- NOTE | 2024-11-05 17:35 | DI.VRAD_ITS ---
PROCEDURE INFORMATION: Exam: XR Left Hand Exam date and time: 11/05/2024 4:47 PM Age: 79 years old Clinical indication: Other: Evaluate fx-left thumb TECHNIQUE: Imaging protocol: Radiologic exam of the left hand. Views: 3 or more views. COMPARISON: No relevant prior studies available. FINDINGS: Bones/joints: There is a comminuted fracture of the proximal phalanx of the thumb. There is separation of the fracture fragments. There is angulation and impaction. This involves the metacarpal phalangeal joint space. Soft tissues: There is associated soft tissue swelling. IMPRESSION: Comminuted fracture involving the proximal phalanx of the thumb. Dictated and Authenticated by: Eloy Peña MD. Orderin Eric Camilo MD
== END 2024-11-05 13:50 ==
LOC: DI 12-19 13:31
PROVIDERS: PCP Nurse Practitioner Family; Visit Provider Nurse Practitioner Family
DX: S62.512A Displaced fracture of proximal phalanx of left thumb, initial encounter for closed fracture (principal); X58.XXXA Exposure to other specified factors, initial encounter
CPT/HCPCS: 73130